=== PATIENT | male | born 1990 | race Caucasian/White ===

== ENCOUNTER → 2017-01-15 | Day surgery (SDC) | payer OTHER ==
[~2017-01-15] VITALS: Ht 165.1 cm; Wt 74.8 kg
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
== END ==
LOC: STS 02:03
DX: K80.10 Calculus of gallbladder with chronic cholecystitis without obstruction (principal); K66.0 Peritoneal adhesions (postprocedural) (postinfection); Z98.84 Bariatric surgery status; R10.13 Epigastric pain
CPT/HCPCS: 88304; C9399; J0690; J2250